=== PATIENT | female | born 1960 ===

== ENCOUNTER 2016-10-24 13:53 | Emergency (ER) | payer OTHER ==
[2016-10-24 14:45] LABS: BASO # 0.1 K/uL (0.0-0.2); BASO % 0.8 % (0.0-2.0); EOS # 0.1 K/uL (0.0-0.7); EOS % 1.3 % (0.0-4.0); HEMOGLOBIN 13.1 g/dL (12.0-16.0); LYMPH # 2.2 K/uL (1.0-4.3); LYMPH % 28.9 % (20.0-40.0); MEAN CELL VOLUME 93.8 fl (81.0-99.0); MEAN CORPUSCULAR HEMOGLOBIN 31.3 pg (27.0-31.0); MEAN CORPUSCULAR HGB CONC 33.3 g/dL (33.0-37.0); MEAN PLATELET VOLUME 7.6 fl (7.2-11.7); MONO # 0.6 K/uL (0.0-0.8); MONO % 8.1 % (0.0-10.0); NEUT # 4.7 K/uL (1.8-7.0); NEUT % 60.9 % (50.0-75.0); RBC 4.21 Mil/uL (3.80-5.20); RED CELL DISTRIBUTION WIDTH 13.9 % (11.5-14.5); WHITE BLOOD COUNT 7.8 K/uL (4.8-10.8)
[2016-10-24 14:55] LABS: ALB/GLOB RATIO 1.6 (1.0-2.1); ALBUMIN 4.5 g/dL (3.5-5.0); ALT/SGPT 38 U/L (9-52); AST/SGOT 35 U/L (14-36); BLOOD UREA NITROGEN 13 mg/dl (7-17); CALCIUM 9.6 mg/dL (8.4-10.2); GFR AFRICAN-AMERICAN > 60; GFR NON-AFRICAN AMERICAN > 60
[2016-10-24 15:05] LABS: SQUAMOUS EPITHIAL 2 /hpf (0-5); URINE BACTERIA RARE (<OCC); URINE BILIRUBIN NEGATIVE (NEGATIVE); URINE BLOOD LARGE (NEGATIVE); URINE CLARITY CLEAR (Clear); URINE COLOR STRAW (YELLOW); URINE GLUCOSE (UA) >=500 mg/dL (Normal); URINE LEUKOCYTE ESTERASE NEG Leu/uL (Negative); URINE NITRATE NEGATIVE (NEGATIVE); URINE PROTEIN NEGATIVE (NEGATIVE); URINE UROBILINOGEN 0.2-1.0 mg/dL (0.2-1.0)
--- NOTE | 2016-10-24 15:16 | ED PDOC ---
HPI: Female Pain Time Seen by Provider: 10/24/16 14:10 Chief Complaint (Nursing): Female Genitourinary Chief Complaint (Provider): abdominal pain/vaginal bleeding History Per: Patient (56 y/o female brought to ED for evaluation of vaginal bleeding noted x 5 days. Patient states she has had last menstrual cycle last year. Has had polyp removed by machine adjuster leader last year. Has had cxn 22 years ago. Denies any history of cancer.) Past Medical History Reviewed: Historical Data, Nursing Documentation, Vital Signs Vital Signs: Last Vital Signs Temp 97.4 F L 10/24/16 13:55 Pulse 73 10/24/16 13:55 Resp 20 10/24/16 13:55 BP 105/56 L 10/24/16 13:55 Pulse Ox 100 10/24/16 13:55 - Medical History PMH: Anxiety, Depression, Diabetes, HTN, Hypercholesterolemia, Paranoia, Schizophrenia - Surgical History Surgical History: Endoscopy, - Family History Family History: States: Unknown Family Hx - Home Medications Home Medications: Ambulatory Orders Medication Instructions Recorded Naproxen [Naprosyn] 500 mg PO Q12H #20 tab 09/02/15 Albuterol HFA [Ventolin HFA 90 2 puff IH [id number] PRN #0 puff 09/08/15 mcg/actuation (8 g)] Atorvastatin Calcium [Lipitor] 20 mg PO DAILY 09/08/15 Azithromycin [Zithromax] 1 tab PO DAILY #6 tablet 09/08/15 Canagliflozin/Metformin HCl 1 tab PO BID 09/08/15 [Invokamet 150 mg-1000 mg] Escitalopram [Lexapro] 10 mg PO DAILY 09/08/15 Ferrous Sulfate [Feosol] 325 mg PO DAILY 09/08/15 Gabapentin [Neurontin] 300 mg PO BID 09/08/15 Insulin Detemir [Levemir] 17 unit SC DAILY 09/08/15 LORazepam [Ativan] 1 mg PO DAILY 09/08/15 Memantine [Namenda] 10 mg PO DAILY 09/08/15 Multivit,Iron,Min 5/Folic Acid 1 tab PO DAILY 09/08/15 [Strovite Forte] Omeprazole 20 mg PO BID 09/08/15 Promethazine DM [Phenergan DM Oral 5 ml PO BID PRN #120 ml 09/08/15 Syrup] Trazodone HCl 150 mg PO HS 09/08/15 Ziprasidone HCl [Geodon] 80 mg PO BID 09/08/15 - Allergies Allergies/Adverse Reactions: Allergies Allergy/AdvReac Type Severity Reaction Status Date / Time No Known Allergies Allergy Verified 09/08/15 13:53 Review of Systems ROS Statement: Except As Marked, All Systems Reviewed And Found Negative Physical Exam - Reviewed Nursing Documentation Reviewed: Yes Vital Signs Reviewed: Yes - Physical Exam Appears: Positive for: Well, Non-toxic, No Acute Distress Head Exam: Positive for: ATRAUMATIC, NORMAL INSPECTION, NORMOCEPHALIC Skin: Positive for: Normal Color, Warm, DRY Eye Exam: Positive for: EOMI, Normal appearance, PERRL ENT: Positive for: Normal ENT Inspection Neck: Positive for: Normal, Painless ROM Cardiovascular/Chest: Positive for: Regular Rate, Rhythm Respiratory: Positive for: CNT, Normal Breath Sounds Gastrointestinal/Abdominal: Positive for: Normal Exam, Bowel Sounds, Soft Pelvic Exam: Positive for: Active Bleeding Back: Positive for: Normal Inspection Extremity: Positive for: Normal ROM Neurologic/Psych: Positive for: Alert, Oriented - Laboratory Results Result Diagrams: 10/24/16 14:30 10/24/16 14:30 - ECG O2 Sat by Pulse Oximetry: 100 - Progress ED Course And Treament: US: 8 MM ECHOGENIC MASS ? POLYP Medical Decision Making Medical Decision Making: Pelvic US: HISTORY: ABNORMAL VAGINAL BLEEDING COMPARISON: None available. TECHNIQUE: Transabdominal pelvic ultrasound was performed. FINDINGS: UTERUS: Measures 11.0 x 3.5 x 5.2 cm. Anteverted, normal in size and appearance. There is a 8 x 3 x 6 mm echogenic focus in the anterior wall of the lower uterine segment. ENDOMETRIUM: Measures 3.0 mm in diameter. Unremarkable. CERVIX: No cervical abnormality identified. RIGHT OVARY: Measures 3.0 x 1.2 x 3.1 cm. No solid mass. Normal flow. LEFT OVARY: Measures 3.3 x 3.0 x 3.6 cm. No solid mass. Normal flow. There is a 1.7 cm exophytic cyst in the left ovary . FREE FLUID: No significant free fluid noted. OTHER FINDINGS: None. IMPRESSION: 8 mm echogenic focus in the lower uterine segment is nonspecific and could represent a small endometrial polyp or small calcified fibroadenoma versus nonspecific calcification. A dedicated transvaginal examination would be helpful for definite evaluation Disposition - Clinical Impression Clinical Impression: Vaginal bleeding - Patient ED Disposition Is Patient to be Admitted: No - Disposition Referrals: Edna Hollis MD [Primary Care Provider] - [facility]] Disposition: Routine/Home Disposition Time: 17:50 Condition: FAIR Instructions: Dysfunctional Uterine Bleeding (ED)
--- NOTE | 2016-10-24 17:26 | US ---
HISTORY: ABNORMAL VAGINAL BLEEDING COMPARISON: None available. TECHNIQUE: Transabdominal pelvic ultrasound was performed. FINDINGS: UTERUS: Measures 11.0 x 3.5 x 5.2 cm. Anteverted, normal in size and appearance. There is a 8 x 3 x 6 mm echogenic focus in the anterior wall of the lower uterine segment. ENDOMETRIUM: Measures 3.0 mm in diameter. Unremarkable. CERVIX: No cervical abnormality identified. RIGHT OVARY: Measures 3.0 x 1.2 x 3.1 cm. No solid mass. Normal flow. LEFT OVARY: Measures 3.3 x 3.0 x 3.6 cm. No solid mass. Normal flow. There is a 1.7 cm exophytic cyst in the left ovary . FREE FLUID: No significant free fluid noted. OTHER FINDINGS: None. IMPRESSION: 8 mm echogenic focus in the lower uterine segment is nonspecific and could represent a small endometrial polyp or small calcified fibroadenoma versus nonspecific calcification. A dedicated transvaginal examination would be helpful for definite evaluation
[2016-10-24 18:41] VITALS: BP 115/72; PULSE 65; RESP 15; TEMP 98.3; O2SAT 96
== END 2016-10-24 18:39 | disposition home or self-care (01) ==
LOC: H.ER 13:53
DX: N93.9 Abnormal uterine and vaginal bleeding, unspecified (principal)

== ENCOUNTER 2016-11-29 01:31 | Emergency (ER) | payer OTHER ==
[2016-11-29 01:42] VITALS: TEMP 98.6
--- NOTE | 2016-11-29 02:20 | ED PDOC ---
HPI: Hypertension/Hypotension Time Seen by Provider: 11/29/16 01:41 Chief Complaint (Nursing): High Blood Pressure Chief Complaint (Provider): Hypertension History Per: Patient History/Exam Limitations: no limitations Current Symptoms Are (Timing): Still Present Associated Symptoms: Headache (Mild) Quality Of Symptoms: Asymptomatic Additional Complaint(s): 56 year old female presents to ED status post an episode of HTN and has a past medical history of DM and hypercholesterolemia. Patient notes that she had a mild headache at home and subsequently checked her blood pressure. Reports that her blood pressure at the time was 180/90, prompting her arrival to the ED. (-) chest pain and SOB. Patient notes that upon arrival to ED, blood pressure has normalized. Patient states that she does not desire strong medication and was simply concerned about her blood pressure. PCP: ТАТЬЯНА Past Medical History Reviewed: Historical Data, Nursing Documentation, Vital Signs Vital Signs: Last Vital Signs Temp 98.6 F 11/29/16 01:36 Pulse 68 11/29/16 01:36 Resp 20 11/29/16 01:36 BP 140/81 11/29/16 01:36 Pulse Ox 100 11/29/16 01:36 - Medical History PMH: Anxiety, Depression, Diabetes, HTN, Hypercholesterolemia, Paranoia, Schizophrenia - Surgical History Surgical History: Endoscopy, - Family History Family History: States: Unknown Family Hx - Social History Alcohol: None Drugs: Denies - Home Medications Home Medications: Ambulatory Orders Medication Instructions Recorded Naproxen [Naprosyn] 500 mg PO Q12H #20 tab 09/02/15 Albuterol HFA [Ventolin HFA 90 2 puff IH [id number] PRN #0 puff 09/08/15 mcg/actuation (8 g)] Atorvastatin Calcium [Lipitor] 20 mg PO DAILY 09/08/15 Azithromycin [Zithromax] 1 tab PO DAILY #6 tablet 09/08/15 Canagliflozin/Metformin HCl 1 tab PO BID 09/08/15 [Invokamet 150 mg-1000 mg] Escitalopram [Lexapro] 10 mg PO DAILY 09/08/15 Ferrous Sulfate [Feosol] 325 mg PO DAILY 09/08/15 Gabapentin [Neurontin] 300 mg PO BID 09/08/15 Insulin Detemir [Levemir] 17 unit SC DAILY 09/08/15 LORazepam [Ativan] 1 mg PO DAILY 09/08/15 Memantine [Namenda] 10 mg PO DAILY 09/08/15 Multivit,Iron,Min 5/Folic Acid 1 tab PO DAILY 09/08/15 [Strovite Forte] Omeprazole 20 mg PO BID 09/08/15 Promethazine DM [Phenergan DM Oral 5 ml PO BID PRN #120 ml 09/08/15 Syrup] Trazodone HCl 150 mg PO HS 09/08/15 Ziprasidone HCl [Geodon] 80 mg PO BID 09/08/15 - Allergies Allergies/Adverse Reactions: Allergies Allergy/AdvReac Type Severity Reaction Status Date / Time No Known Allergies Allergy Verified 09/08/15 13:53 Review of Systems ROS Statement: Except As Marked, All Systems Reviewed And Found Negative Cardiovascular: Negative for: Chest Pain Respiratory: Negative for: Shortness of Breath Neurological: Positive for: Headache (mild) Physical Exam - Reviewed Nursing Documentation Reviewed: Yes Vital Signs Reviewed: Yes - Physical Exam Appears: Positive for: Non-toxic, No Acute Distress Head Exam: Positive for: ATRAUMATIC, NORMOCEPHALIC Skin: Positive for: Normal Color, Warm, Dry Eye Exam: Positive for: Normal appearance, EOMI, PERRL ENT: Positive for: Normal ENT Inspection Neck: Positive for: Normal, Painless ROM, Supple Cardiovascular/Chest: Positive for: Regular Rate, Rhythm Respiratory: Positive for: Normal Breath Sounds. Negative for: Respiratory Distress Gastrointestinal/Abdominal: Positive for: Soft. Negative for: Tenderness Back: Positive for: Normal Inspection Extremity: Positive for: Normal ROM. Negative for: Deformity Neurologic/Psych: Positive for: Alert, Oriented. Negative for: Motor/Sensory Deficits - Laboratory Results Result Diagrams: 11/29/16 02:21 11/29/16 02:21 - ECG O2 Sat by Pulse Oximetry: 100 (RA) Pulse Ox Interpretation: Normal Medical Decision Making Medical Decision Makin Initial impression: anxiety, non-pathological headache, resolving HTN Initial plan: * EKG * Labs * Ibuprofen 600mg PO * Re-eval 0330 Upon re-evaluation, patient feels much better and is stable for discharge home. Scribe Attestation: Documented by Melvi Christianson acting as a scribe for Paul Hatch MD. Scribe Attestation: All medical record entries made by the Scribe were at my direction and personally dictated by me. I have reviewed the chart and agree that the record accurately reflects my personal performance of the history, physical exam, medical decision making, and the department course for this patient. I have also personally directed, reviewed, and agree with the discharge instructions and disposition. Disposition - Clinical Impression Clinical Impression: Headache - Disposition Referrals: Edna Hollis MD [Primary Care Provider] - Disposition: Routine/Home Disposition Time: 03:30 Condition: STABLE Instructions: Hypertension (ED) Forms: [facility] [employer] (Kosovan) Print Language: PALAUAN
[2016-11-29 02:27] LABS: HEMOGLOBIN 13.3 g/dL (12.0-16.0); MEAN CELL VOLUME 93.2 fl (81.0-99.0); MEAN CORPUSCULAR HGB CONC 33.2 g/dL (33.0-37.0); RBC 4.29 Mil/uL (3.80-5.20); RED CELL DISTRIBUTION WIDTH 13.2 % (11.5-14.5)
[2016-11-29 02:35] LABS: BLOOD UREA NITROGEN 10 mg/dl (7-17); CALCIUM 9.6 mg/dL (8.4-10.2); GFR AFRICAN-AMERICAN > 60; GFR NON-AFRICAN AMERICAN > 60
[2016-11-29 03:58] VITALS: BP 100/58; PULSE 60; RESP 18
[2016-11-29 03:59] VITALS: O2SAT 100
--- NOTE | 2016-11-29 07:18 | CARD ---
APPROVED REPORT EKG Measurement Heart [id number] <Conclusion> Normal sinus rhythm Nonspecific ST abnormality Abnormal ECG
== END 2016-11-29 03:35 | disposition home or self-care (01) ==
LOC: H.ER 01:31
DX: R51 Headache (principal); I10 Essential (primary) hypertension; E78.00 Pure hypercholesterolemia, unspecified; E11.9 Type 2 diabetes mellitus without complications

== ENCOUNTER 2018-03-26 20:54 | Emergency (ER) | payer OTHER ==
[2018-03-26 21:01] VITALS: BP 148/70; PULSE 73; RESP 16; TEMP 97.8; O2SAT 97
[2018-03-26] MEDS ORDERED: MethylPREDNISolone 40 mg Vial IM STA ×2 (21:13→21:31)
[2018-03-26] MEDS ORDERED: methylPREDNISolone 40 MG in Sodium Chloride 0.9% 50 ML IM STA (21:18)
[2018-03-26] MEDS ORDERED: MethylPREDNISolone 40 mg Vial ONE (21:19)
--- NOTE | 2018-03-26 21:19 | ED PDOC ---
HPI: General Adult Time Seen by Provider: 03/26/18 21:06 Chief Complaint (Nursing): Abnormal Skin Integrity Chief Complaint (Provider): rash History Per: Patient Onset/Duration Of Symptoms: Days (x 1) Current Symptoms Are (Timing): Still Present Additional Complaint(s): 57 year old female presents to the ED with a rash on her entire body starting this morning. Patient reports she ate mushrooms yesterday and woke up with rash today. She states she has not eaten mushrooms before. No shortness of breath or throat discomfort reported. PMD: Dr. Edna Hollis Past Medical History Reviewed: Historical Data, Nursing Documentation, Vital Signs Vital Signs: Last Vital Signs Temp 97.8 F 03/26/18 20:57 Pulse 73 03/26/18 20:57 Resp 16 03/26/18 20:57 BP 148/70 03/26/18 20:57 Pulse Ox 97 03/26/18 20:57 - Medical History PMH: Anxiety, Depression, Diabetes, HTN, Hypercholesterolemia, Paranoia, Schizophrenia - Surgical History Surgical History: Other surgeries: colonoscopy - Family History Family History: States: No Known Family Hx - Living Arrangements Living Arrangements: With Family - Social History Current smoker - smoking cessation education provided: No Alcohol: None Drugs: Denies - Home Medications Home Medications: Ambulatory Orders Medication Instructions Recorded Naproxen [Naprosyn] 500 mg PO Q12H #20 tab 09/02/15 Albuterol HFA [Ventolin HFA 90 2 puff IH [id number] PRN #0 puff 09/08/15 mcg/actuation (8 g)] Atorvastatin Calcium [Lipitor] 20 mg PO DAILY 09/08/15 Azithromycin [Zithromax] 1 tab PO DAILY #6 tablet 09/08/15 Canagliflozin/Metformin HCl 1 tab PO BID 09/08/15 [Invokamet 150 mg-1000 mg] Escitalopram [Lexapro] 10 mg PO DAILY 09/08/15 Ferrous Sulfate [Feosol] 325 mg PO DAILY 09/08/15 Gabapentin [Neurontin] 300 mg PO BID 09/08/15 Insulin Detemir [Levemir] 17 unit SC DAILY 09/08/15 LORazepam [Ativan] 1 mg PO DAILY 09/08/15 Memantine [Namenda] 10 mg PO DAILY 09/08/15 Multivit,Iron,Min 5/Folic Acid 1 tab PO DAILY 09/08/15 [Strovite Forte] Omeprazole 20 mg PO BID 09/08/15 Promethazine DM [Phenergan DM Oral 5 ml PO BID PRN #120 ml 09/08/15 Syrup] Trazodone HCl 150 mg PO HS 09/08/15 Ziprasidone HCl [Geodon] 80 mg PO BID 09/08/15 predniSONE [Prednisone] 10 mg PO BID #10 tab 03/26/18 - Allergies Allergies/Adverse Reactions: Allergies Allergy/AdvReac Type Severity Reaction Status Date / Time No Known Allergies Allergy Verified 03/26/18 20:59 Review of Systems ROS Statement: Except As Marked, All Systems Reviewed And Found Negative Skin: Positive for: Rash Physical Exam - Reviewed Nursing Documentation Reviewed: Yes Vital Signs Reviewed: Yes - Physical Exam Appears: Positive for: Well, Non-toxic, No Acute Distress Head Exam: Positive for: ATRAUMATIC, NORMAL INSPECTION, NORMOCEPHALIC Skin: Positive for: Rash (Urticarial lesions noted to entire body) Eye Exam: Positive for: Normal appearance Cardiovascular/Chest: Positive for: Regular Rate, Rhythm. Negative for: Murmur Respiratory: Positive for: Normal Breath Sounds. Negative for: Respiratory Distress Neurologic/Psych: Positive for: Alert, Oriented. Negative for: Motor/Sensory Deficits - ECG O2 Sat by Pulse Oximetry: 97 (RA) Pulse Ox Interpretation: Normal Medical Decision Making Medical Decision Makin:18 Impression: allergic dermatitis Initial Plan: --40 mg IM solumedrol Discussion for prednisone provided. Advised [id number] Benadryl edition to prescription meds. Advise PMD follow-up in 2-3 days. Scribe Attestation: Documented by Suzan Olivo, acting as a scribe for Maxine Pimentel PA-C Provider Scribe Attestation: All medical record entries made by the Scribe were at my direction and personally dictated by me. I have reviewed the chart and agree that the record accurately reflects my personal performance of the history, physical exam, medical decision making, and the department course for this patient. I have also personally directed, reviewed, and agree with the discharge instructions and disposition. Disposition - Clinical Impression Clinical Impression: Urticaria - Patient ED Disposition Is Patient to be Admitted: No Counseled Patient/Family Regarding: Diagnosis, Need For Followup, Rx Given - Disposition Referrals: Edna Hollis MD [Family Provider] - Disposition: Routine/Home Disposition Time: 22:19 Condition: STABLE Additional Instructions: Take prescription meds as directed along with [id number] Benadryl. Follow- up in 2-3 days with primary doctor. Prescriptions: predniSONE [Prednisone] 10 mg PO BID #10 tab Instructions: Yvonne (DC) Forms: [employer] (Taiwanese) Print Language: SYRIAC
[2018-03-26] MEDS ORDERED: MethylPREDNISolone 40 mg Vial IVP STA (21:24)
[2018-03-26] MEDS ORDERED: MethylPREDNISolone 40 mg Vial IVP ONE (21:30)
== END 2018-03-26 22:35 | disposition home or self-care (01) ==
LOC: H.ER 20:54
DX: L23.9 Allergic contact dermatitis, unspecified cause (principal); Z79.4 Long term (current) use of insulin
CPT/HCPCS: 96372; 99282; J2930

== ENCOUNTER 2018-03-28 11:24 | Emergency (ER) | payer OTHER ==
[2018-03-28 11:45] VITALS: O2SAT 99
--- NOTE | 2018-03-28 12:47 | ED PDOC ---
HPI: General Adult Time Seen by Provider: 03/28/18 12:30 Chief Complaint (Nursing): Abnormal Skin Integrity Chief Complaint (Provider): Abnormal Skin Integrity History Per: Patient History/Exam Limitations: no limitations Onset/Duration Of Symptoms: Days (x2) Current Symptoms Are (Timing): Still Present Additional Complaint(s): Angela Hernandez is a 57 year old female with a past medical history of hypertension, hypercholesterolemia, and diabetes who is presenting to the ED for evaluation of a rash associated with itching onset 2 days ago. Patient states that she ate mushroom and developed this rash, and she reports that she believes that it might be an allergic reaction. Pt seen in ER 2 days ago at onset and given IM solumedrol. She adds that she has been medicating with Benadryl and Prednisone with no improvement in symptoms. She denies any shortness of breath or any other medical complaints. PMD: Darius Paulino Past Medical History Reviewed: Historical Data, Nursing Documentation, Vital Signs Vital Signs: Last Vital Signs Temp 98.4 F 03/28/18 11:42 Pulse 79 03/28/18 11:42 Resp 20 03/28/18 11:42 BP 124/73 03/28/18 11:42 Pulse Ox 99 03/28/18 11:42 - Medical History PMH: Anxiety, Depression, Diabetes, HTN, Hypercholesterolemia, Paranoia, Schizophrenia - Surgical History Surgical History: Endoscopy, - Family History Family History: States: Unknown Family Hx - Social History Current smoker - smoking cessation education provided: No Alcohol: None Drugs: Denies - Home Medications Home Medications: Ambulatory Orders Medication Instructions Recorded Naproxen [Naprosyn] 500 mg PO Q12H #20 tab 09/02/15 Albuterol HFA [Ventolin HFA 90 2 puff IH [id number] PRN #0 puff 09/08/15 mcg/actuation (8 g)] Atorvastatin Calcium [Lipitor] 20 mg PO DAILY 09/08/15 Azithromycin [Zithromax] 1 tab PO DAILY #6 tablet 09/08/15 Canagliflozin/Metformin HCl 1 tab PO BID 09/08/15 [Invokamet 150 mg-1000 mg] Escitalopram [Lexapro] 10 mg PO DAILY 09/08/15 Ferrous Sulfate [Feosol] 325 mg PO DAILY 05/20/16 Gabapentin [Neurontin] 300 mg PO BID 09/08/15 Insulin Detemir [Levemir] 17 unit SC DAILY 09/08/15 LORazepam [Ativan] 1 mg PO DAILY 09/08/15 Memantine [Namenda] 10 mg PO DAILY 09/08/15 Multivit,Iron,Min 5/Folic Acid 1 tab PO DAILY 09/08/15 [Strovite Forte] Omeprazole 20 mg PO BID 09/08/15 Promethazine DM [Phenergan DM Oral 5 ml PO BID PRN #120 ml 09/08/15 Syrup] Trazodone HCl 150 mg PO HS 09/08/15 Ziprasidone HCl [Geodon] 80 mg PO BID 09/08/15 predniSONE [Prednisone] 10 mg PO BID #10 tab 03/26/18 Famotidine [Pepcid] 20 mg PO DAILY #7 tab 03/28/18 Loratadine [Claritin] 10 mg PO DAILY #14 tab 03/28/18 - Allergies Allergies/Adverse Reactions: Allergies Allergy/AdvReac Type Severity Reaction Status Date / Time No Known Allergies Allergy Verified 03/26/18 20:59 Review of Systems ROS Statement: Except As Marked, All Systems Reviewed And Found Negative Constitutional: Negative for: Fever, Chills ENT: Negative for: Mouth Pain, Mouth Swelling, Throat Pain, Throat Swelling Respiratory: Negative for: Cough, Shortness of Breath Skin: Positive for: Rash Physical Exam - Reviewed Nursing Documentation Reviewed: Yes Vital Signs Reviewed: Yes - Physical Exam Appears: Positive for: Well, Non-toxic, No Acute Distress Head Exam: Positive for: ATRAUMATIC, NORMAL INSPECTION, NORMOCEPHALIC Skin: Positive for: Warm, Dry, Rash (erythematous maculopapular rash all over body with (+) blanching ) Eye Exam: Positive for: Normal appearance ENT: Positive for: Pharynx Is (clear) Cardiovascular/Chest: Positive for: Regular Rate, Rhythm Respiratory: Positive for: Normal Breath Sounds. Negative for: Respiratory Distress Neurologic/Psych: Positive for: Alert, Oriented. Negative for: Motor/Sensory Deficits - ECG O2 Sat by Pulse Oximetry: 99 (RA) Pulse Ox Interpretation: Normal Medical Decision Making Medical Decision Making: Time: 12:38 Plan: --Pepcid 20 mg PO Patient explained need for evaluation by chief quality officer and advised follow up with PMD. Scribe Attestation: Documented by Brooklyn Rivera, acting as a scribe for Sera Desir PA-C. Provider Scribe Attestation: All medical record entries made by the Scribe were at my direction and personally dictated by me. I have reviewed the chart and agree that the record accurately reflects my personal performance of the history, physical exam, medical decision making, and the department course for this patient. I have also personally directed, reviewed, and agree with the discharge instructions and disposition. Disposition - Clinical Impression Clinical Impression: Urticaria - Disposition Disposition: Routine/Home Disposition Time: 13:10 Condition: GOOD Prescriptions: Famotidine [Pepcid] 20 mg PO DAILY #7 tab Loratadine [Claritin] 10 mg PO DAILY #14 tab Instructions: Yvonne (DC) Forms: [employer] (Faroese)
[2018-03-28 14:14] VITALS: BP 130/89; PULSE 80; RESP 18; TEMP 98
== END 2018-03-28 14:08 | disposition home or self-care (01) ==
LOC: H.ER 11:24
DX: L50.9 Urticaria, unspecified (principal); E11.9 Type 2 diabetes mellitus without complications; Z79.4 Long term (current) use of insulin; Z86.59 Personal history of other mental and behavioral disorders; I10 Essential (primary) hypertension